=== PATIENT | female | born 1940 | race Caucasian/White ===

== ENCOUNTER → 2018-03-06 10:50 | Outpatient (CLI) | payer MEDICARE, BC, SELFPAY ==
--- NOTE | 2018-03-06 | DI.MG.S_ITS ---
BILATERAL DIGITAL SCREENING MAMMOGRAM 3D/2D WITH CAD: 03/06/2018 CLINICAL: Routine screening. Comparison is made to exams dated: 02/27/2017 mammogram, 01/23/2016 mammogram, and 01/21/2015 mammogram - [facility]. The tissue of both breasts is extremely dense, which lowers the sensitivity of mammography. Current study was also evaluated with a Computer Aided Detection (CAD) system. No significant masses, calcifications, or other findings are seen in either breast. There has been no significant interval change. IMPRESSION: NEGATIVE There is no mammographic evidence of malignancy. A 1 year screening mammogram is recommended. This exam was interpreted at Station ID: [id number]. NOTE: For mammograms, a report in lay terms will be sent to the patient. Approximately 15% of breast malignancies will not be visualized mammographically. In the management of a palpable breast mass, a negative mammogram must not discourage biopsy of a clinically suspicious lesion. Electronically Signed By: Kyler cervantes/cat:03/06/2018 20:11:13 letter sent: Normal Exam ACR BI-RADS Category 1: Negative [id number]
== END ==
PROVIDERS: Family Provider Family Medicine; PCP Family Medicine; Visit Provider Family Medicine
DX: Z12.31 Encounter for screening mammogram for malignant neoplasm of breast (principal)
CPT/HCPCS: 77063; 77067

== ENCOUNTER 2018-03-07 13:50 | Day surgery (SDC) | payer MEDICARE, BC, SELFPAY ==
--- NOTE | 2018-03-07 | PATH_ITS ---
[facility] Accession Number: [id number] . 01 Material submitted: . COLON POLYP BIOPSY AT 80CM . 02 Diagnosis: Colon Polyp Biopsy at 80 cm: Polypoid-shaped fragment of colon mucosa consistent with mucosal polypoid redundancy. Negative for evidence of neoplasm and/or hyperplasia on multiple serial and histologic sections. MRV/03/11/2018 . 02 Electronically signed: . Javid Alvarado MD, Pathologist NPI- [id number] . 01 Gross description: . COLON POLYP BIOPSY AT 80CM: Received in formalin is 1 fragment(s) of sargent, soft tissue measuring 0.5 x 0.3 x 0.1 cm submitted entirely in 1 cassette(s) /CKI /CKI . 02 Pathologist provided ICD-10: K63.5 . 02 CPT . 566364 Performed at: 01 [facility] [address], [place], [place] [id number] MD Kyler Pérez MD Phone: [phone] Performed at: 02 [facility] [address] [place], [place] [id number] MD Tanner Ulloa MD Phone: [phone]
[2018-03-07 14:30] VITALS: BP 133/72; PULSE 104; RESP 20; TEMP 36.1; O2SAT 98
[2018-03-07 14:47] VITALS: BMI 20.3
[2018-03-07] MEDS: SODIUM CHLORIDE 0.9% 1,000 ML 200 ML IV ×2 (14:50→16:32)
--- NOTE | 2018-03-07 15:10 | SUR.PREOP ---
Pt ready for Endo Suite at this time. head host/hostess data base has been completed, PIV in place and ns is at TKO. Consent has been signed, awaiting MD to sign consent and see Pt at the bedside.
--- NOTE | 2018-03-07 15:50 | P.HP_ITS ---
History of Present Illness Date Patient Seen: 03/07/18 Time Patient Seen: 15:48 Chief complaint: colonoscopy [id number] Narrative: Very pleasant 77-year-old female with a history of AFib but no longer symptomatic who has a history of colon polyps here for follow-up colonoscopy no signs and symptoms of rectal bleeding, melena, weight loss, fatigue, change in bowel habits. Patient History Family & Social History Family History: Reviewed 03/07/18 by Pramod Jade MD Social History: household members spouse Meds Home Medications Medication Instructions Recorded Confirmed Type levothyroxine [Levoxyl] 25 mcg PO QAM #0 09/11/17 03/07/18 History aspirin [Aspir-81] 81 mg PO DAILY 03/07/18 03/07/18 History atorvastatin 20 mg PO DAILY 03/07/18 03/07/18 History cholecalciferol (vitamin D3) 1 tab PO DAILY 03/07/18 03/07/18 History [Vitamin D3] coQ10 (ubiquinol) 100 mg PO DAILY 03/07/18 03/07/18 History docusate sodium 200 mg PO DAILY 03/07/18 03/07/18 History estradiol [Estrace] 1 g VAGINAL 3XW 03/07/18 03/07/18 History omega 7-bvh-tsq-fish oil [Fish Oil] 2 tab PO DAILY 03/07/18 03/07/18 History Allergies Allergy/AdvReac Type Severity Reaction Status Date / Time bacitracin Allergy Intermediate RASH Verified 03/06/18 14:19 [From NEOSPORIN ([id number])] neomycin Allergy Intermediate RASH Verified 03/06/18 14:19 [From NEOSPORIN ([id number])] polymyxin B Allergy Intermediate RASH Verified 03/06/18 14:19 [From NEOSPORIN ([id number])] rosuvastatin [From Crestor] AdvReac Intermediate Headache Verified 03/06/18 14: 18 Review of Systems Review of Systems All systems reviewed & are unremarkable except as noted in HPI and below Exam Vital Signs (past 8 hours): - 03/07/18 14:30 Temperature 97 F L Pulse Rate 104 H Respiratory Rate 20 Blood Pressure 133/72 H Pulse Oximetry 98 Oxygen Delivery Method Room Air Narrative Exam Narrative: Pleasant 77-year-old female in no acute distress speaking in full sentences No carotid bruits Pupils equal round reactive anicteric sclera Neck is symmetric Chest symmetric Lungs clear to auscultation bilaterally Heart regular rate and rhythm no real murmur or gallop or rub or click Abdomen soft nontender Extremities warm well perfused no cyanosis clubbing or edema Skin no obvious lesions Neuro alert and oriented x3 Psych a pleasant alert normal mood Assessment & Plan (1) Encounter for colonoscopy due to history of adenomatous colonic polyps: Current visit: Yes Status: Acute Plan: Assessment/Plan Narrative: I discussed the risks and benefits of the procedure of the colonoscopy including perforation missed lesion infection bleeding delayed perforation sedation rarely symptomatic complications leading to and she wishes to proceed with elective colonoscopy for history of colon polyps
--- NOTE | 2018-03-07 15:50 | PM.OP.ENDO ---
Operative Date/Time/Diagnoses Time of procedure: 15:51 Procedure & Clinicians Same procedure as scheduled: No (Internal hemorrhoids Grade 2. Polyp at 80cm, unable to reach cecum, ran out of colonoscope length. ) Indications: History of colon polyps Surgeon: Pramod Jade Procedure Notes SCOAP/Timeout: yes Procedure in detail: After informed consent was obtained including risks and benefits of missed lesion, perforation sedation and other the patient was taken to the endoscopy suite where she was given a total of 5 mg of Versed and 250 mcg of fentanyl. 43 min total sedation time and 10 min total withdrawal time. Digital rectal exam showed internal hemorrhoids and a well lubricated endoscope was placed into the anus and advanced to the right colon. Multiple positions were tried with the patient on her right side on her left side on her back with 2 nurses to press on the abdomen to try and decrease looping in the colon however we utilized the entire length of the colonoscope and with multiple attempts was still unable to intubate the cecum. There were no major polyps throughout the entire colon on withdrawal 1 diminutive polyp was seen at 80 cm and removed with cold forceps. There was no significant bleeding remainder of the colonoscopy was essentially normal with retroflexion showing internal hemorrhoids grade 2-3. Scope withdrawal time: 10 Sedation minutes: 43 Findings: internal hemorrhoids and polyp Specimen(s): other (polyp at 80 cm cold forceps) Complications: none Recommendations: Colonscopy in 3 years Plan for aftercare: Follow up in 3 yrs for repeat. Incomplete scope due to inability to get to cecum, very floppy colon, looping in colon, multiple positions of patient with 2 nurses to press on abdomen, ran out of scope length. Follow up: as needed Disposition: PACU
[2018-03-07] MEDS: fentaNYL 250 MCG/5 ML INJ IV (15:56)
[2018-03-07] MEDS: MIDAZOLAM 5 MG/5 ML VIAL IV (15:57)
--- NOTE | 2018-03-07 16:28 | SUR.OPER ---
unable to reach cecum
[2018-03-07 16:35] VITALS: BP 102/56; PULSE 70; RESP 12; O2SAT 97
[2018-03-07 16:40] VITALS: BP 96/56; PULSE 66; RESP 14; O2SAT 99
[2018-03-07 16:45] VITALS: BP 98/54; PULSE 64; RESP 18; TEMP 36.1; O2SAT 98
[2018-03-07 17:00] VITALS: BP 114/58; PULSE 60; RESP 16; O2SAT 99
--- NOTE | 2018-03-07 17:25 | SUR.PHASEII ---
Prior to discharge spent time in casual conversation with Dr Jade. That time is not included in Phase II time.
== END 2018-03-07 17:09 | disposition home or self-care (01) ==
PROVIDERS: Family Provider Family Medicine; PCP Family Medicine; Visit Provider Surgery
PROC: 0DJD8ZZ Inspection of Lower Intestinal Tract, Via Natural or Artificial Opening Endoscopic (ICD-10-PCS; CPT 45378; principal; 2018-03-07 15:00)
DX: Z86.010 Personal history of colon polyps (principal); K64.1 Second degree hemorrhoids; K63.5 Polyp of colon
CPT/HCPCS: 45380; 88305; 99152; 99153; J2250; J3010

== ENCOUNTER 2018-10-21 10:21 | Emergency (ER) | payer MEDICARE, BC, SELFPAY ==
[2018-10-21] VITALS (10 sets, daily range): BP systolic 118–160; BP diastolic 65–77; PULSE 14–114; RESP 11–19; TEMP 36.4; O2SAT 99–100
--- NOTE | 2018-10-21 10:29 | DI.RAD.S_ITS ---
PROCEDURE: XR CHEST 1V INDICATIONS: Chest pain TECHNIQUE: One view of the chest was acquired. COMPARISON: [facility], , CHEST 2 VIEW, 07/13/2017, 15:22. FINDINGS: Surgical changes and devices: None. Lungs and pleura: Lungs are clear. No pleural effusions or pneumothorax. Mediastinum: Mediastinal contours appear normal. Heart size is normal. Bones and chest wall: No suspicious bony lesions. Overlying soft tissues appear unremarkable. IMPRESSION: No acute cardiopulmonary pathology. Dictated by: Everton Morris M.D. on 10/21/2018 at 11:07 Approved by: Everton Morris M.D. on 10/21/2018 at 11:08
[2018-10-21 11:04] LABS: Add Manual Diff / Slide Review NO; Basophils Absolute Auto 0 /uL (0-100); Basophils Percent Auto 1.2 % (0-2); Eosinophils Absolute Auto 100 /uL (0-450); Eosinophils Percent Auto 1.9 % (2-4); Hemoglobin 13.8 g/dL (12.0-16.0); Lymphocytes Absolute Auto 1300 /uL (1100-4500); Lymphocytes Percent Auto 30.2 % (25-40); Mean Corpuscular HGB Conc 33.7 % (30-36); Mean Corpuscular Hemoglobin 30.5 PG (26-34); Mean Corpuscular Volume 90.7 fL (80-100); Monocytes Absolute Auto 400 /uL (0-900); Monocytes Percent Auto 9.6 % (3-14); Neutrophils Absolute Auto 2400 /uL (1500-7000); Neutrophils Percent Auto 57.1 % (50-75); Platelet Count 204 X10^3/uL (150-400); Red Blood Cell Count 4.52 X10^6/uL (4.0-5.2); Red Cell Distribution Width 13.4 % (11.6-14.8); White Blood Cell Count 4.2 X10^3/uL (4.5-11.0)
[2018-10-21 11:09] LABS: Prothrombin Time 11.1 SECONDS (10.1-12.7)
[2018-10-21 11:11] LABS: PTT Partial Thromboplastin Tim 33 SECONDS (26.4-36.2)
--- NOTE | 2018-10-21 11:16 | ED.CHESTPAIN ---
HPI - Chest Pain General Chief Complaint: Chest Pain Stated Complaint: CHEST PAIN Time Seen by Provider: 10/21/18 10:29 Source: patient Mode of arrival: ambulatory History of Present Illness HPI narrative: 78-year-old female here for evaluation of chest pain. She states that she woke up this morning with left-sided chest discomfort. Not worse with breathing or palpation or movement. She states that she occasionally wakes up with this pain and did not think much about it however she went for her normal 4 mi walk this morning and had to stop early because the symptoms worsened. She states that the symptoms improved but did not resolve when she stopped exerting herself. She states for the past couple days this has been happening to her. Denies any shortness of breath. does have a history of atrial fibrillation. 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 Related Data Home Medications Medication Instructions Recorded Confirmed aspirin [Aspir-81] 81 mg PO QPM 03/07/18 10/21/18 atorvastatin 20 mg PO QPM 03/07/18 10/21/18 cholecalciferol (vitamin D3) 1 tab PO DAILY 03/07/18 10/21/18 [Vitamin D3] coenzyme Q10 [CoQ-10] 100 mg PO DAILY 03/07/18 10/21/18 docusate sodium 100 mg PO BID 03/07/18 10/21/18 estradiol [Estrace] 1 g VAGINAL 3XW 03/07/18 10/21/18 omega 7-lpx-wkm-fish oil [Fish Oil] 2 - 3 cap PO DAILY 03/07/18 10/21/18 aspirin 325 mg PO .ONCE 10/21/18 10/21/18 levothyroxine 50 mcg PO DAILY 10/21/18 10/21/18 Allergies Allergy/AdvReac Type Severity Reaction Status Date / Time bacitracin Allergy Intermediate RASH Verified 10/21/18 10:37 [From NEOSPORIN ([id number])] neomycin Allergy Intermediate RASH Verified 10/21/18 10:37 [From NEOSPORIN ([id number])] polymyxin B Allergy Intermediate RASH Verified 10/21/18 10:37 [From NEOSPORIN ([id number])] rosuvastatin [From Crestor] AdvReac Intermediate Headache Verified 10/21/18 10:37 Review of Systems Constitutional Denies fever(s) and Denies headache(s) ENT Ears, Nose, Mouth, and Throat: Denies vertigo and Denies headache(s) Cardiovascular Reports chest pain, Denies diaphoresis, Denies rapid heart rate, Denies pedal edema, Denies palpitations, Reports dyspnea and Reports dyspnea on exertion Respiratory Reports dyspnea and Reports dyspnea on exertion Gastrointestinal Gastrointestinal: Denies abdominal pain, Denies nausea and Denies vomiting Integumentary/Breasts Denies lesions and Denies rash Neurologic Denies confusion, Denies vertigo and Denies headache(s) Psychiatric Denies confusion Endocrine Denies palpitations Hematologic/Lymphatic Denies easy bleeding and Denies easy bruising Allergic/Immunologic Denies urticaria [facility] Medical History Atrial fibrillation (Acute) High cholesterol (Acute) Hypothyroidism (Acute) Skin cancer (Acute) Social History household members: spouse Social History household members: spouse Exam Initial Vital Signs Initial Vital Signs: Vital Signs Temperature 97.6 F 10/21/18 10:31 Pulse Rate 89 10/21/18 10:31 Respiratory Rate 16 10/21/18 10:31 Blood Pressure 160/75 H 10/21/18 10:31 Pulse Oximetry 100 10/21/18 10:31 Const General: cooperative, comfortable, well developed, well groomed and No acute distress Orientation: alert, awake and oriented x3 HENMT Head: normal to inspection and normocephalic Resp Effort & Inspection: normal respiratory effort Auscultation: clear to auscultation bilaterally Cardio Rate: regular rate Rhythm: regular rhythm Pulses: radial pulses present Skin Lesions: no lesions Rashes: no rashes Neuro General: alert, awake and oriented x3 Extrem General: normal to inspection, capillary refill normal and No edema Psych Appearance: grossly normal and well kempt Course Orders Ordered: ED Orders 10/21/18 10:28 EKG-12 Lead Stat 10/21/18 10:29 XR chest 1V Stat 10/21/18 10:45 Complete Blood Count AUTO DIFF Stat Comprehensive Metabolic Panel Stat Lipase Stat Partial Thromboplastin Time Stat Prothrombin Time INR Stat Troponin I Stat 10/21/18 15:47 Partial Thromboplastin Time Stat 10/21/18 16:00 PTT [Partial Thromboplastin Time] Q6H 10/21/18 22:00 PTT [Partial Thromboplastin Time] Q6H 10/22/18 04:00 PTT [Partial Thromboplastin Time] Q6H 10/22/18 05:00 Hemoglobin and Hematocrit DAILY 10/22/18 10:00 PTT [Partial Thromboplastin Time] Q6H Heparin Sodium/Dextrose (Heparin Drip) 25,000 unit in 500 mls @ 13.608 mls/hr IV CONT ANGIE; Protocol Nitroglycerin (Nitrostat) 0.4 mg SL [id number] PRN PRN Reason: Chest Pain Discontinued Medications Aspirin (Aspirin Chew) 324 mg PO NOW ONE Stop: 10/21/18 11:21 Last Admin: 10/21/18 11:40 Dose: Not Given Heparin Sodium (Porcine) (Heparin) 4,000 unit IV NOW ONE Stop: 10/21/18 15:48 Vital Signs - 8 hr 10/21/18 10:31 10/21/18 11:00 10/21/18 11:30 Temperature 97.6 F Pulse Rate 89 114 H 67 Respiratory Rate 16 11 L 19 Blood Pressure 160/75 H Blood Pressure [Left Arm] 134/72 118/70 Pulse Oximetry 100 100 100 10/21/18 12:00 10/21/18 13:00 10/21/18 13:30 Temperature Pulse Rate 14 L 72 71 Respiratory Rate 15 14 15 Blood Pressure Blood Pressure [Left Arm] 133/72 140/77 124/66 Pulse Oximetry 100 100 100 10/21/18 14:28 10/21/18 15:23 Temperature Pulse Rate 73 73 Respiratory Rate 16 14 Blood Pressure Blood Pressure [Left Arm] 125/69 120/65 Pulse Oximetry 100 MDM - Chest Pain Lab Data Attestation: I reviewed the patient's lab results. Result diagrams: 10/21/18 10:45 10/21/18 10:45 Lab Results 10/21/18 10/21/18 10/21/18 Range/Units 10:45 10:45 10:45 WBC 4.2 L (4.5-11.0) X10^3/uL RBC 4.52 (4.0-5.2) X10^6/uL Hgb 13.8 (12.0-16.0) g/dL Hct 41.0 (36-46) % MCV 90.7 (80-100) fL MCH 30.5 (26-34) PG MCHC 33.7 (30-36) % RDW 13.4 (11.6-14.8) % Plt Count 204 (150-400) X10^3/uL Neut % (Auto) 57.1 (50-75) % Lymph % (Auto) 30.2 (25-40) % Citrus % (Auto) 9.6 (3-14) % Eos % (Auto) 1.9 L (2-4) % Baso % (Auto) 1.2 (0-2) % Neut # (Auto) 2400 (0003-3481) /uL Lymph # (Auto) 1300 (4611-4769) /uL Citrus # (Auto) 400 (0-900) /uL Eos # (Auto) 100 (0-450) /uL Baso # (Auto) 0 (0-100) /uL PT 11.1 (10.1-12.7) SECONDS INR 1.0 (0.9-1.3) APTT 33 (26.4-36.2) SECONDS Sodium 136 L (137-145) mmol/L Potassium 4.0 (3.4-5.1) mmol/L Chloride 104 (98-107) mmol/L Carbon Dioxide 24 (22-32) mmol/L BUN 14 (7-17) mg/dL Creatinine 0.70 (0.52-1.04) mg/dL Estimated GFR > 60.0 (>60) mL/min BUN/Creatinine Ratio 20.0 (6-22) Glucose 133 H (80-110) mg/dL Calcium 9.2 (8.4-10.2) mg/dL Total Bilirubin 0.4 (0.2-1.3) mg/dL AST 32 (14-36) IU/L ALT 31 (9-52) IU/L Alkaline Phosphatase 73 (38-126) U/L Troponin I < 0.012 (0.01-0.034) ng/mL Total Protein 7.1 (6.3-8.2) g/dL Albumin 4.3 (3.5-5.0) g/dL Globulin 2.8 (1.7-4.1) g/dL Albumin/Globulin Ratio 1.5 (1.0-2.8) Lipase 86 (23-300) U/L Imaging Data Chest x-ray: Radiologist's impression: [address] [address] XRay Report Signed Patient: Mignon Webster JMR#: [id number] : 1941Acct:[id number] Age/Sex: 78 / FDate of Service: 10/21/18 Loc: ED Accession Number: [id number] Procedure: XR chest 1V Ordering Provider: Gonzalez Akbar D.O. PROCEDURE: XR CHEST 1V INDICATIONS: Chest pain TECHNIQUE: One view of the chest was acquired. COMPARISON: [facility], , CHEST 2 VIEW, 07/13/2017, 15:22. FINDINGS: Surgical changes and devices: None. Lungs and pleura: Lungs are clear. No pleural effusions or pneumothorax. Mediastinum: Mediastinal contours appear normal. Heart size is normal. Bones and chest wall: No suspicious bony lesions. Overlying soft tissues appear unremarkable. IMPRESSION: No acute cardiopulmonary pathology. Dictated by: Everton Morris M.D. on 10/21/2018 at 11:07 Approved by: Everton Morris M.D. on 10/21/2018 at 11:08 ECG Data Attestation: I personally reviewed and interpreted this ECG as follows: Prior ECG tracings: not available for review Interpretation: Sinus rhythm Ventricular rate 88 Normal QRS Normal QTC Nonspecific ST T wave changes MDM Narrative Medical decision making narrative: Patient was having some discomfort upon arrival here to the emergency department however prior to her receiving any nitroglycerin her symptoms had resolved. She remained symptom free during the remainder of her stay. Her initial troponin was negative. She was given an aspirin. I was able to discuss the case with Dr. Ruiz at the [facility] who accepts the patient for transport. Patient was transported to the [facility] per their request. Patient is stable for transport. They have been informed of the transport and agree. Will start the patient on heparin per recommendation of Dr. Ruiz given her concerning story. Discharge Plan Departure Patient Disposition: [facility] Clinical Impression: Unstable angina Prescriptions: No Action levothyroxine 50 mcg tablet 50 mcg PO DAILY RF: 0 aspirin 325 mg Tablet 325 mg PO .ONCE RF: 0 atorvastatin 20 mg Tablet 20 mg PO QPM RF: 0 aspirin [Aspir-81] 81 mg Tablet,Delayed Release (Dr/Ec) 81 mg PO QPM RF: 0 cholecalciferol (vitamin D3) [Vitamin D3] 2,000 unit Capsule 1 tab PO DAILY RF: 0 omega 2-wqv-dyf-fish oil [Fish Oil] 1,000 mg (120 mg-180 mg) Capsule 2 - 3 cap PO DAILY RF: 0 coenzyme Q10 [CoQ-10] 100 mg Capsule 100 mg PO DAILY RF: 0 docusate sodium 100 mg Capsule 100 mg PO BID RF: 0 estradiol [Estrace] 0.01 % (0.1 mg/gram) Cream 1 g VAGINAL 3XW RF: 0 Referrals: Nico Kumar MD [Primary Care Provider] -
--- NOTE | 2018-10-21 11:19 | ED_ITS ---
HPI - Chest Pain General Chief Complaint: Chest Pain Stated Complaint: CHEST PAIN Time Seen by Provider: 10/21/18 10:29 Source: patient Mode of arrival: ambulatory History of Present Illness HPI narrative: 78-year-old female here for evaluation of chest pain. She states that she woke up this morning with left-sided chest discomfort. Not worse with breathing or palpation or movement. She states that she occasionally wakes up with this pain and did not think much about it however she went for her normal 4 mi walk this morning and had to stop early because the symptoms worsened. She states that the symptoms improved but did not resolve when she stopped exerting herself. She states for the past couple days this has been happening to her. Denies any shortness of breath. does have a history of atrial fibrillation. He has never had a heart attack before has not seen a cognos in 7 years. Related Data Home Medications Medication Instructions Recorded Confirmed aspirin [Aspir-81] 81 mg PO QPM 03/07/18 10/21/18 atorvastatin 20 mg PO QPM 03/07/18 10/21/18 cholecalciferol (vitamin D3) 1 tab PO DAILY 03/07/18 10/21/18 [Vitamin D3] coenzyme Q10 [CoQ-10] 100 mg PO DAILY 03/07/18 10/21/18 docusate sodium 100 mg PO BID 03/07/18 10/21/18 estradiol [Estrace] 1 g VAGINAL 3XW 03/07/18 10/21/18 omega 1-dna-oop-fish oil [Fish Oil] 2 - 3 cap PO DAILY 03/07/18 10/21/18 aspirin 325 mg PO .ONCE 10/21/18 10/21/18 levothyroxine 50 mcg PO DAILY 10/21/18 10/21/18 Allergies Allergy/AdvReac Type Severity Reaction Status Date / Time bacitracin Allergy Intermediate RASH Verified 10/21/18 10:37 [From NEOSPORIN ([id number])] neomycin Allergy Intermediate RASH Verified 10/21/18 10:37 [From NEOSPORIN ([id number])] polymyxin B Allergy Intermediate RASH Verified 10/21/18 10:37 [From NEOSPORIN ([id number])] rosuvastatin [From Crestor] AdvReac Intermediate Headache Verified 10/21/18 10:37 Review of Systems Constitutional Denies fever(s) and Denies headache(s) ENT Ears, Nose, Mouth, and Throat: Denies vertigo and Denies headache(s) Cardiovascular Reports chest pain, Denies diaphoresis, Denies rapid heart rate, Denies pedal edema, Denies palpitations, Reports dyspnea and Reports dyspnea on exertion Respiratory Reports dyspnea and Reports dyspnea on exertion Gastrointestinal Gastrointestinal: Denies abdominal pain, Denies nausea and Denies vomiting Integumentary/Breasts Denies lesions and Denies rash Neurologic Denies confusion, Denies vertigo and Denies headache(s) Psychiatric Denies confusion Endocrine Denies palpitations Hematologic/Lymphatic Denies easy bleeding and Denies easy bruising Allergic/Immunologic Denies urticaria [facility] Medical History Atrial fibrillation (Acute) High cholesterol (Acute) Hypothyroidism (Acute) Skin cancer (Acute) Social History household members: spouse Social History household members: spouse Exam Initial Vital Signs Initial Vital Signs: Vital Signs Temperature 97.6 F 10/21/18 10:31 Pulse Rate 89 10/21/18 10:31 Respiratory Rate 16 10/21/18 10:31 Blood Pressure 160/75 H 10/21/18 10:31 Pulse Oximetry 100 10/21/18 10:31 Const General: cooperative, comfortable, well developed, well groomed and No acute distress Orientation: alert, awake and oriented x3 HENMT Head: normal to inspection and normocephalic Resp Effort & Inspection: normal respiratory effort Auscultation: clear to auscultation bilaterally Cardio Rate: regular rate Rhythm: regular rhythm Pulses: radial pulses present Skin Lesions: no lesions Rashes: no rashes Neuro General: alert, awake and oriented x3 Extrem General: normal to inspection, capillary refill normal and No edema Psych Appearance: grossly normal and well kempt Course Orders Ordered: ED Orders 10/21/18 10:28 EKG-12 Lead Stat 10/21/18 10:29 XR chest 1V Stat 10/21/18 10:45 Complete Blood Count AUTO DIFF Stat Comprehensive Metabolic Panel Stat Lipase Stat Partial Thromboplastin Time Stat Prothrombin Time INR Stat Troponin I Stat 10/21/18 15:47 Partial Thromboplastin Time Stat 10/21/18 16:00 PTT [Partial Thromboplastin Time] Q6H 10/21/18 22:00 PTT [Partial Thromboplastin Time] Q6H 10/22/18 04:00 PTT [Partial Thromboplastin Time] Q6H 10/22/18 05:00 Hemoglobin and Hematocrit DAILY 10/22/18 10:00 PTT [Partial Thromboplastin Time] Q6H Heparin Sodium/Dextrose (Heparin Drip) 25,000 unit in 500 mls @ 13.608 mls/hr IV CONT ANGIE; Protocol Nitroglycerin (Nitrostat) 0.4 mg SL [id number] PRN PRN Reason: Chest Pain Discontinued Medications Aspirin (Aspirin Chew) 324 mg PO NOW ONE Stop: 10/21/18 11:21 Last Admin: 10/21/18 11:40 Dose: Not Given Heparin Sodium (Porcine) (Heparin) 4,000 unit IV NOW ONE Stop: 10/21/18 15:48 Vital Signs - 8 hr 10/21/18 10:31 10/21/18 11:00 10/21/18 11:30 Temperature 97.6 F Pulse Rate 89 114 H 67 Respiratory Rate 16 11 L 19 Blood Pressure 160/75 H Blood Pressure [Left Arm] 134/72 118/70 Pulse Oximetry 100 100 100 10/21/18 12:00 10/21/18 13:00 10/21/18 13:30 Temperature Pulse Rate 14 L 72 71 Respiratory Rate 15 14 15 Blood Pressure Blood Pressure [Left Arm] 133/72 140/77 124/66 Pulse Oximetry 100 100 100 10/21/18 14:28 10/21/18 15:23 Temperature Pulse Rate 73 73 Respiratory Rate 16 14 Blood Pressure Blood Pressure [Left Arm] 125/69 120/65 Pulse Oximetry 100 MDM - Chest Pain Lab Data Attestation: I reviewed the patient's lab results. Result diagrams: 10/21/18 10:45 10/21/18 10:45 Lab Results 10/21/18 10/21/18 10/21/18 Range/Units 10:45 10:45 10:45 WBC 4.2 L (4.5-11.0) X10^3/uL RBC 4.52 (4.0-5.2) X10^6/uL Hgb 13.8 (12.0-16.0) g/dL Hct 41.0 (36-46) % MCV 90.7 (80-100) fL MCH 30.5 (26-34) PG MCHC 33.7 (30-36) % RDW 13.4 (11.6-14.8) % Plt Count 204 (150-400) X10^3/uL Neut % (Auto) 57.1 (50-75) % Lymph % (Auto) 30.2 (25-40) % [place] % (Auto) 9.6 (3-14) % Eos % (Auto) 1.9 L (2-4) % Baso % (Auto) 1.2 (0-2) % Neut # (Auto) 2400 (7606-7582) /uL Lymph # (Auto) 1300 (1477-7560) /uL [place] # (Auto) 400 (0-900) /uL Eos # (Auto) 100 (0-450) /uL Baso # (Auto) 0 (0-100) /uL PT 11.1 (10.1-12.7) SECONDS INR 1.0 (0.9-1.3) APTT 33 (26.4-36.2) SECONDS Sodium 136 L (137-145) mmol/L Potassium 4.0 (3.4-5.1) mmol/L Chloride 104 (98-107) mmol/L Carbon Dioxide 24 (22-32) mmol/L BUN 14 (7-17) mg/dL Creatinine 0.70 (0.52-1.04) mg/dL Estimated GFR > 60.0 (>60) mL/min BUN/Creatinine Ratio 20.0 (6-22) Glucose 133 H (80-110) mg/dL Calcium 9.2 (8.4-10.2) mg/dL Total Bilirubin 0.4 (0.2-1.3) mg/dL AST 32 (14-36) IU/L ALT 31 (9-52) IU/L Alkaline Phosphatase 73 (38-126) U/L Troponin I < 0.012 (0.01-0.034) ng/mL Total Protein 7.1 (6.3-8.2) g/dL Albumin 4.3 (3.5-5.0) g/dL Globulin 2.8 (1.7-4.1) g/dL Albumin/Globulin Ratio 1.5 (1.0-2.8) Lipase 86 (23-300) U/L Imaging Data Chest x-ray: Radiologist's impression: [address] [address] XRay Report Signed Patient: Mignon Webster JMR#: [id number] : 1941Acct:[id number] Age/Sex: 78 / FDate of Service: 10/21/18 Loc: ED Accession Number: [id number] Procedure: XR chest 1V Ordering Provider: Gonzalez Akbar D.O. PROCEDURE: XR CHEST 1V INDICATIONS: Chest pain TECHNIQUE: One view of the chest was acquired. COMPARISON: , , CHEST 2 VIEW, 07/13/2017, 15:22. FINDINGS: Surgical changes and devices: None. Lungs and pleura: Lungs are clear. No pleural effusions or pneumothorax. Mediastinum: Mediastinal contours appear normal. Heart size is normal. Bones and chest wall: No suspicious bony lesions. Overlying soft tissues appear unremarkable. IMPRESSION: No acute cardiopulmonary pathology. Dictated by: Everton Morris M.D. on 10/21/2018 at 11:07 Approved by: Everton Morris M.D. on 10/21/2018 at 11:08 ECG Data Attestation: I personally reviewed and interpreted this ECG as follows: Prior ECG tracings: not available for review Interpretation: Sinus rhythm Ventricular rate 88 Normal QRS Normal QTC Nonspecific ST T wave changes MDM Narrative Medical decision making narrative: Patient was having some discomfort upon ar rival here to the emergency department however prior to her receiving any nitroglycerin her symptoms had resolved. She remained symptom free during the remainder of her stay. Her initial troponin was negative. She was given an aspirin. I was able to discuss the case with Dr. Ruiz at the [facility] who accepts the patient for transport. Patient was transported to the [facility] per their request. Patient is stable for transport. They have been informed of the transport and agree. Will start the patient on heparin per recommendation of Dr. Ruiz given her concerning story. Discharge Plan Departure Patient Disposition: [facility] Clinical Impression: Unstable angina Prescriptions: No Action levothyroxine 50 mcg tablet 50 mcg PO DAILY RF: 0 aspirin 325 mg Tablet 325 mg PO .ONCE RF: 0 atorvastatin 20 mg Tablet 20 mg PO QPM RF: 0 aspirin [Aspir-81] 81 mg Tablet,Delayed Release (Dr/Ec) 81 mg PO QPM RF: 0 cholecalciferol (vitamin D3) [Vitamin D3] 2,000 unit Capsule 1 tab PO DAILY RF: 0 omega 3-yya-yev-fish oil [Fish Oil] 1,000 mg (120 mg-180 mg) Capsule 2 - 3 cap PO DAILY RF: 0 coenzyme Q10 [CoQ-10] 100 mg Capsule 100 mg PO DAILY RF: 0 docusate sodium 100 mg Capsule 100 mg PO BID RF: 0 estradiol [Estrace] 0.01 % (0.1 mg/gram) Cream 1 g VAGINAL 3XW RF: 0 Referrals: Nico Kumar MD [Primary Care Provider] -
[2018-10-21 11:36] LABS: Alanine Aminotransferase 31 IU/L (9-52); Albumin 4.3 g/dL (3.5-5.0); Albumin Globulin Ratio 1.5 (1.0-2.8); Alkaline Phosphatase 73 U/L (38-126); Aspartate Aminotransferase 32 IU/L (14-36); Bilirubin Total 0.4 mg/dL (0.2-1.3); Blood Urea Nitrogen 14 mg/dL (7-17); Calcium 9.2 mg/dL (8.4-10.2); Carbon Dioxide 24 mmol/L (22-32); Chloride 104 mmol/L (98-107); Estimated Glomerular Filt Rate > 60.0 mL/min (>60); Globulin 2.8 g/dL (1.7-4.1); Glucose 133 mg/dL (80-110); HEMOLYSIS < 15 (0-50); Lipase 86 U/L (23-300); Sodium 136 mmol/L (137-145); Total Protein 7.1 g/dL (6.3-8.2)
[2018-10-21 11:48] LABS: Troponin I < 0.012 ng/mL (0.01-0.034)
[2018-10-21] MEDS: HEPARIN 5,000 UNIT/ML VIAL 4000 UNIT IV (16:22)
[2018-10-21] MEDS: HEPARIN DRIP 25,000 UNIT/500 ML IV.SOLN 13.608 UNIT IV (16:23)
[2018-10-21 16:26] LABS: PTT Partial Thromboplastin Tim 33 SECONDS (26.4-36.2)
--- NOTE | 2018-10-21 16:33 | PC.NURSE ---
Heparin bolus cosigned by Arvind PETERSON, heparin drip cosigned by Gillian PETERSON.
--- NOTE | 2018-11-06 09:41 | PC.NURSE ---
Heparin Drip 25,000 units/500mL was started at on 10/21/18 at 1623 at 13.608ml/hr and stopped on 10/21/18 upon transfer at 1730. Patient received approximately 26ml and drip was continued in transport by [facility] RN's.
== END 2018-10-21 17:30 | disposition short-term general hospital (02) ==
PROVIDERS: Emergency Provider Emergency Medicine; Family Provider Family Medicine; PCP Family Medicine
DX: I20.0 Unstable angina (principal)
CPT/HCPCS: 36415; 36591; 71045; 80053; 83690; 84484; 85025; 85610; 85730; 93005; 93010; 96365; 96376; 99285; J1644

== ENCOUNTER → 2019-03-10 10:38 | Outpatient (CLI) | payer MEDICARE, BC, SELFPAY ==
--- NOTE | 2019-03-10 | DI.MG.S_ITS ---
BILATERAL DIGITAL SCREENING MAMMOGRAM 3D/2D WITH CAD: 03/10/2019 CLINICAL: Routine screening. Comparison is made to exams dated: 03/06/2018 mammogram, 02/27/2017 mammogram, and 01/23/2016 mammogram - [facility]. The tissue of both breasts is extremely dense, which lowers the sensitivity of mammography. Current study was also evaluated with a Computer Aided Detection (CAD) system. No significant masses, calcifications, or other findings are seen in either breast. There has been no significant interval change. IMPRESSION: NEGATIVE There is no mammographic evidence of malignancy. A 1 year screening mammogram is recommended. This exam was interpreted at Station ID: [id number]. NOTE: For mammograms, a report in lay terms will be sent to the patient. Approximately 15% of breast malignancies will not be visualized mammographically. In the management of a palpable breast mass, a negative mammogram must not discourage biopsy of a clinically suspicious lesion. Electronically Signed By: Kyler cervantes/cat:03/10/2019 16:32:02 letter sent: Normal Exam ACR BI-RADS Category 1: Negative [id number]
== END ==
PROVIDERS: Family Provider Family Medicine; PCP Family Medicine; Visit Provider Family Medicine
DX: Z12.31 Encounter for screening mammogram for malignant neoplasm of breast (principal)
CPT/HCPCS: 77063; 77067

== ENCOUNTER → 2019-12-28 12:42 | Outpatient (CLI) | payer MEDICARE, BC, SELFPAY ==
--- NOTE | 2019-12-28 | DI.MG.S_ITS ---
BILATERAL DIGITAL DIAGNOSTIC MAMMOGRAM 3D/2D: 12/28/2019 CLINICAL: Left breast tenderness which patient currently says has completely resolved. No focal masses. No palpable abnormalities. Comparison is made to exams dated: 03/10/2019 mammogram, 03/06/2018 mammogram, and 02/27/2017 mammogram - [facility]. The tissue of both breasts is extremely dense, which lowers the sensitivity of mammography. No significant masses, calcifications, or other findings are seen in either breast. IMPRESSION: There is no abnormality seen in the left breast to correspond with the area of clinical concern and pain which has resolved prior to today's visit, however, recommend clinical follow up for recurrent or worsening symptoms or development of any clinically suspicious findings. There is no mammographic evidence of malignancy. A 1 year screening mammogram is recommended. Findings and recommendations were relayed to the patient during today's visit. This exam was interpreted at Station ID: [id number]. NOTE: For mammograms, a report in lay terms will be sent to the patient. Approximately 15% of breast malignancies will not be visualized mammographically. In the management of a palpable breast mass, a negative mammogram must not discourage biopsy of a clinically suspicious lesion. Electronically Signed By: Dhruv Singh M.D. aty/:12/28/2019 13:30:20 letter sent: Normal Exam ACR BI-RADS Category 2: Benign Finding(s) 3342F
== END ==
PROVIDERS: Family Provider Family Medicine; PCP Family Medicine; Referring Provider Family Medicine; Visit Provider Family Medicine
DX: R92.2 Inconclusive mammogram (principal); N64.4 Mastodynia; N63.20 Unspecified lump in the left breast, unspecified quadrant
CPT/HCPCS: 77066; G0279

== ENCOUNTER → 2021-01-03 10:18 | Outpatient (CLI) | payer MEDICARE, BC, SELFPAY ==
--- NOTE | 2021-01-03 | DI.MG.S_ITS ---
BILATERAL DIGITAL SCREENING MAMMOGRAM 3D/2D WITH CAD: 01/03/2021 CLINICAL: Routine screening. Comparison is made to exams dated: 12/28/2019 mammogram, 03/10/2019 mammogram, 03/06/2018 mammogram, and 02/27/2017 mammogram - [facility]. The tissue of both breasts is extremely dense, which lowers the sensitivity of mammography. Current study was also evaluated with a Computer Aided Detection (CAD) system. No significant masses, calcifications, or other findings are seen in either breast. There has been no significant interval change. IMPRESSION: NEGATIVE There is no mammographic evidence of malignancy. A 1 year screening mammogram is recommended. This exam was interpreted at Station ID: [id number]. NOTE: For mammograms, a report in lay terms will be sent to the patient. Approximately 15% of breast malignancies will not be visualized mammographically. In the management of a palpable breast mass, a negative mammogram must not discourage biopsy of a clinically suspicious lesion. Electronically Signed By: Miguel leija/cat:01/03/2021 10:51:22 letter sent: Normal Exam ACR BI-RADS Category 1: Negative 3341F
== END ==
PROVIDERS: Family Provider Family Medicine; PCP Family Medicine; Referring Provider Family Medicine; Visit Provider Family Medicine
DX: Z12.31 Encounter for screening mammogram for malignant neoplasm of breast (principal)
CPT/HCPCS: 77063; 77067

== ENCOUNTER → 2021-06-28 09:11 | Outpatient (CLI) | payer MEDICARE, BC, SELFPAY ==
[2021-06-28 11:11] LABS: COVID19 -Nasal RAPID Negative (Negative)
== END ==
PROVIDERS: Family Provider Family Medicine; PCP Family Medicine; Visit Provider Physician Assistant
DX: Z20.822 Contact with and (suspected) exposure to COVID-19 (principal)
CPT/HCPCS: 87635; C9803

== ENCOUNTER 2021-06-29 11:32 | Day surgery (SDC) | payer MEDICARE, BC, SELFPAY ==
[2021-06-27 11:13] VITALS: BMI 20.6
[2021-06-29 12:07] VITALS: BP 134/67; PULSE 75; RESP 18; TEMP 36.6; O2SAT 100; BMI 20.6
[2021-06-29] MEDS: LACTATED RINGERS 1,000 ML 42 ML IV (12:18)
[2021-06-29] MEDS: ACETAMINOPHEN 325 MG TABLET 650 MG PO (12:59)
--- NOTE | 2021-06-29 13:04 | PM.PREOP ---
Pre-operative Note COVID-19 COVID-19 status: Negative Result date/Date tested (Pos, Neg/Pending): 06/28/21 Interval Note History & Physical reviewed/Exam performed by Physician: Yes Changes to H&P: No
[2021-06-29] MEDS: CEFAZOLIN 2 GM/20 ML SYRINGE IV (13:05)
--- NOTE | 2021-06-29 13:05 | PM.OP.1 ---
Operative Date/Time/Diagnoses Date of procedure: 06/29/21 Time of procedure: 13:05 Pre-op diagnosis: Left great toe mass, suspect granuloma, with possible recurrent ingrown toenail. Post-op diagnosis: other (Left great toe recurrent matrix growth with subcutaneous degenerating nail tissue mass) Procedure & Clinicians Procedure: Left great toe excision soft tissue mass and surgical matrixectomy Same procedure as scheduled: Yes Indications: 80-year-old female with concern of painful bump on the great toe near the proximal nail where she has previously had an ingrown toenail. Conservative measures have failed to alleviate her pain and the prominence continues. Surgical intervention is desired. We spoke of the risks potential complications as well as expected outcomes. Consent was signed, no contraindication to the procedure at this time. Surgeon: Kim Mullen Click Yes if Unassisted: Yes Anesthesia Type: Sedation and Local Operative Notes Closure Type: primary Specimen(s): none sent Estimated Blood Loss (mL): 0 Procedure in detail: Patient was brought to the operating room and placed on the operating table in the supine position. After mild IV sedation, local anesthesia using the recorded injectables was obtained to the great toe. The foot was prepped and draped in the usual aseptic manner. After a check of anesthesia incision was made on the dorsal medial great toe over the enlarged nodule just proximal to the proximal medial nail fold of the hallux. The incision was deepened to subcutaneous tissues being careful to identify and retract all vital neural and vascular structures. All bleeders were cauterized and ligated as necessary. Immediately in the subcutaneous tissues was exuding a soft collection slightly gritty discharge, nonpurulent, non malodorous. Within the discharge there were 2 portions of nail that had evidently grown and broken off and the rest was degenerative nail tissue. At the very base of this was a small thin white cap consistent with the location with which this was growing. The cap was able to be easily removed and then the area was inspected for any remaining matrix tissue. This was more medially than edge of the remaining nail so my suspicion is that this was a small spicule. I did not see a ne tissue to be able to see a feather type base of the tissue of the matrix, but I did see an overlying thin piece of tissue that did appear to look consistent with some remaining matrix tissue. This was sharply excised and the area irrigated with normal saline. Curette and cautery were used in this area as well to verify no further nail matrix. The nail itself was not trimmed during this time. The area was irrigated with normal saline once again, and no further matrix tissue was noted. Closure to the skin used nylon suture. He was dressed with sterile lightly compressive dressing and placed in a stockinette and transferred to the PACU with vital signs stable and vascular status intact the foot. Post-operative Condition: stable Disposition: PACU Plan for aftercare: Following a period of postoperative monitoring, the patient will be discharged to home on written and oral postoperative instructions including keeping the dressing dry and intact. Avoiding significant weight-bearing to the foot, elevating the foot when seated at home. DVT prevention techniques were also reviewed. She has a sandal she is going to be using for postoperative care and I will see her back in a few days for a recheck.
[2021-06-29] MEDS: LIDOCAINE 2% INJ MDV 20 ML INJ (13:27)
[2021-06-29] MEDS: BUPIVACAINE 0.5% (PF) VIAL 30 ML INJ (13:28)
--- NOTE | 2021-06-29 13:30 | SUR.OPER ---
Supine on padded OR bed, head on pillow, arms secured on padded arm boards at <90 degrees abduction, legs uncrossed, safety belt at thigh, tape over blanket over lower legs.
[2021-06-29 13:48] VITALS: BP 105/64; PULSE 55; RESP 12; TEMP 36.3; O2SAT 99
[2021-06-29 14:05] VITALS: BP 116/78; PULSE 59; RESP 16; TEMP 36.6; O2SAT 100
== END 2021-06-29 14:32 | disposition home or self-care (01) ==
PROVIDERS: Family Provider Family Medicine; PCP Family Medicine; Referring Provider Podiatrist; Visit Provider Podiatrist
PROC: (CPT 11750; principal; 2021-06-29 13:15)
PROC: 0HTRXZZ Resection of Toe Nail, External Approach (ICD-10-PCS; CPT 11750; 2021-06-29 13:15)
DX: L60.0 Ingrowing nail (principal); L92.8 Other granulomatous disorders of the skin and subcutaneous tissue; J45.909 Unspecified asthma, uncomplicated; I25.10 Atherosclerotic heart disease of native coronary artery without angina pectoris
CPT/HCPCS: 11750; J0690; J2704

== ENCOUNTER 2021-08-31 09:19 | Emergency (ER) | payer MEDICARE, BC, SELFPAY ==
[2021-08-31] VITALS (11 sets, daily range): BP systolic 132–138; BP diastolic 58–82; PULSE 66–103; RESP 15–23; TEMP 36.3; O2SAT 97–100
--- NOTE | 2021-08-31 09:23 | DI.RAD.S_ITS ---
PROCEDURE: XR CHEST 1V INDICATIONS: chest pain TECHNIQUE: One view of the chest was acquired. COMPARISON: [facility], CR, XR CHEST 1V, 10/21/2018, 10:48. FINDINGS: Surgical changes and devices: None. Lungs and pleura: Lungs are clear. No pleural effusions or pneumothorax. Mediastinum: Mediastinal contours appear normal. Heart size is normal. Bones and chest wall: No suspicious bony lesions. Overlying soft tissues appear unremarkable. IMPRESSION: No acute cardiopulmonary abnormality. Dictated by: Shine Bauer M.D. on 08/31/2021 at 10:07 Approved by: Shine Bauer M.D. on 08/31/2021 at 10:08
[2021-08-31 09:36] LABS: Add Manual Diff / Slide Review NO; Basophils Absolute Auto 100 /uL (0-100); Basophils Percent Auto 0.9 % (0-2); Eosinophils Absolute Auto 100 /uL (0-450); Eosinophils Percent Auto 1.6 % (2-4); Hematocrit 41.3 % (36-46); Hemoglobin 13.9 g/dL (12.0-16.0); Lymphocytes Absolute Auto 2200 /uL (1100-4500); Lymphocytes Percent Auto 37.1 % (25-40); Mean Corpuscular HGB Conc 33.6 % (30-36); Mean Corpuscular Hemoglobin 30.4 PG (26-34); Mean Corpuscular Volume 90.4 fL (80-100); Monocytes Absolute Auto 600 /uL (0-900); Monocytes Percent Auto 10.3 % (3-14); Neutrophils Absolute Auto 3000 /uL (1500-7000); Neutrophils Percent Auto 50.1 % (50-75); Platelet Count 210 X10^3/uL (150-400); Red Blood Cell Count 4.57 X10^6/uL (4.0-5.2); Red Cell Distribution Width 13.1 % (11.6-14.8); White Blood Cell Count 5.9 X10^3/uL (4.5-11.0)
--- NOTE | 2021-08-31 09:48 | ED.CHESTPAIN ---
HPI - Chest Pain General Chief Complaint: Chest Pain Stated Complaint: Thinks heart attack Time Seen by Provider: 08/31/21 09:28 Source: patient Mode of arrival: Wheelchair Limitations: no limitations Limitations: no limitations History of Present Illness HPI narrative: The patient arrives in the ER after about 20 minutes of palpitations this morning. She felt a bit weak with dyspnea when this was occurring. She had chest tightness. She has a history of paroxysmal AFib. She has experienced several recent short burst of AFib. That this morning seemed to be more severe than what she has recently experienced. Her heart rate was up to 150, she was at rest at the time. Her heart rate is now normalized. Symptoms have improved. She denies recent illness. She has no headache, sore throat or fever. She denies orthopnea or edema. She takes baby aspirin. She also takes Synthroid, her medications have recently been changed. Related Data Home Medications Medication Instructions Recorded Confirmed aspirin 81 mg tablet,delayed 81 mg PO QPM 03/07/18 06/29/21 release (Aspir-) atorvastatin 20 mg tablet 20 mg PO QPM 03/07/18 06/29/21 cholecalciferol (vitamin D3) 50 1 tab PO DAILY 03/07/18 06/29/21 mcg (2,000 unit) capsule (Vitamin D3) coenzyme Q10 100 mg capsule 100 mg PO DAILY 03/07/18 06/29/21 (CoQ-10) docusate sodium 100 mg capsule 100 mg PO BID 03/07/18 06/29/21 estradiol (Estrace) 1 g VAGINAL 3XW 03/07/18 06/29/21 omega 9-bju-jii-fish oil 1,000 mg 2 - 3 cap PO DAILY 03/07/18 06/29/21 (120 mg-180 mg) capsule (Fish Oil) levothyroxine 50 mcg tablet 50 mcg PO DAILY 10/21/18 06/29/21 Allergies Allergy/AdvReac Type Severity Reaction Status Date / Time bacitracin Allergy Intermediate RASH Verified 08/31/21 09:31 [From NEOSPORIN ([id number])] neomycin Allergy Intermediate RASH Verified 08/31/21 09:31 [From NEOSPORIN ([id number])] polymyxin B Allergy Intermediate RASH Verified 08/31/21 09:31 [From NEOSPORIN ([id number])] rosuvastatin [From Crestor] AdvReac Intermediate Headache Verified 08/31/21 09:31 Review of Systems Constitutional Constitutional: Denies body ache(s), Denies chills, Denies fatigue and Denies fever(s) Eyes Eyes: Denies change in vision ENT Ears, Nose, Mouth, and Throat: Denies dizziness, Denies sinus pressure and Denies sore throat Cardiovascular Cardiovascular: Reports chest pain, Denies syncope, Denies pedal edema, Reports palpitations and Reports dyspnea Respiratory Respiratory: Denies cough and Reports dyspnea Gastrointestinal Gastrointestinal: Denies abdominal pain, Denies bloating and Denies nausea Musculoskeletal Comments: No back pain. No extremity pain. Integumentary/Breasts Skin/Breast: Denies lesions and Denies rash Neurologic Neurologic: Denies confusion, Denies dizziness and Denies syncope Psychiatric Psychiatric: Denies confusion Endocrine Endocrine: Denies fatigue and Reports palpitations Hematologic/Lymphatic On Anticoagulants: No Patient History Medical History Atrial fibrillation High cholesterol Hypothyroidism Mass of toe (06/2021) Skin cancer Social History household members: spouse Smoking Status: Never smoker alcohol intake: current Smoking Status: Never smoker alcohol intake frequency: holidays/special occasions only Substance Use Type: does not use Exam Initial Vital Signs Initial Vital Signs: Vital Signs Pulse Rate 103 H 08/31/21 09:24 Pulse Oximetry 98 08/31/21 09:24 Const General: cooperative, healthy appearing and comfortable [facility] Head: normal to inspection, normocephalic and atraumatic Throat: posterior oropharynx normal Eyes General: appearance normal, both eyes and all related structures Neck Neck: No JVD Chest Chest: normal inspection of the chest Resp Auscultation: clear to auscultation bilaterally Cardio Rate: regular rate Rhythm: regular rhythm Heart Sounds: S1 normal, S2 normal, no click, no gallops and no murmurs GI Palpation: soft and No tender Auscultation: normal bowel sounds Back/Spine/Pelvis Back: normal to inspection and No CVA tenderness Skin General: no rashes or lesions noted Neuro General: patient alert, patient awake, patient oriented x3 and no focal motor deficits Extrem General: normal to inspection, no pedal edema and no calf tenderness Psych Mental Status: mental status grossly normal Course Course Course Narrative: The patient has been asymptomatic since arrival. Monitor shows normal sinus rhythm, she has no ectopy and no arrhythmia. Cardiac evaluation is normal. Thyroid tests are normal. Records indicate she has a history of AFib. She is under the care of a washroom operator. She takes aspirin. I have asked her to follow up with her washroom operator to discuss anticoagulation. She needs to see her washroom operator in clinical follow-up also. She can follow-up with a PCM regarding her thyroid studies. Orders Ordered: ED Orders 08/31/21 09:23 XR chest 1V Stat EKG-12 Lead Stat 08/31/21 09:30 Complete Blood Count AUTO DIFF Stat Comprehensive Metabolic Panel Stat Free T4, Direct Thyroxine Stat Lipase Stat Magnesium Stat TSH [Thyroid Stimulating Hormone] Stat Troponin & CK Cardiac Panel Stat Vital Signs Vital signs: Vital Signs - 8 hr 08/31/21 09:24 08/31/21 09:25 08/31/21 09:26 Temperature 97.4 F L Pulse Rate 103 H 100 H 100 H Respiratory Rate 15 16 Blood Pressure 138/82 138/82 Pulse Oximetry 98 100 100 08/31/21 09:30 08/31/21 10:00 08/31/21 10:30 Temperature Pulse Rate 85 77 68 Respiratory Rate 18 17 15 Blood Pressure Pulse Oximetry 100 99 98 08/31/21 11:00 08/31/21 11:30 08/31/21 11:50 Temperature Pulse Rate 66 72 75 Respiratory Rate 16 23 20 Blood Pressure 132/66 Pulse Oximetry 97 98 99 MDM - Chest Pain Lab Data Result diagrams: 08/31/21 09:30 08/31/21 09:30 Labs: Lab Results 08/31/21 08/31/21 08/31/21 Range/Units 09:30 09:30 09:30 WBC 5.9 (4.5-11.0) X10^3/uL RBC 4.57 (4.0-5.2) X10^6/uL Hgb 13.9 (12.0-16.0) g/dL Hct 41.3 (36-46) % MCV 90.4 (80-100) fL MCH 30.4 (26-34) PG MCHC 33.6 (30-36) % RDW 13.1 (11.6-14.8) % Plt Count 210 (150-400) X10^3/uL Neut % (Auto) 50.1 (50-75) % Lymph % (Auto) 37.1 (25-40) % [place] % (Auto) 10.3 (3-14) % Eos % (Auto) 1.6 L (2-4) % Baso % (Auto) 0.9 (0-2) % Neut # (Auto) 3000 (9261-1066) /uL Lymph # (Auto) 2200 (2302-0292) /uL [place] # (Auto) 600 (0-900) /uL Eos # (Auto) 100 (0-450) /uL Baso # (Auto) 100 (0-100) /uL Sodium 136 L (137-145) mmol/L Potassium 3.8 (3.4-5.1) mmol/L Chloride 104 (98-107) mmol/L Carbon Dioxide 25 (22-32) mmol/L BUN 16 (7-17) mg/dL Creatinine 0.72 (0.52-1.04) mg/dL Estimated GFR > 60.0 (>60) mL/min BUN/Creatinine Ratio 22.2 H (6-22) Glucose 118 H (80-110) mg/dL Calcium 9.1 (8.4-10.2) mg/dL Magnesium 2.1 (1.6-2.3) mg/dL Total Bilirubin 0.5 (0.2-1.3) mg/dL AST 44 H (14-36) IU/L ALT 29 (<35) IU/L Alkaline Phosphatase 72 (38-126) U/L Total Creatine Kinase 106 (30-135) U/L CK-MB (CK-2) 3.11 H (<2.37) ng/mL CK-MB (CK-2) Rel Index 2.9 (1.5-5.0) % Troponin I < 0.012 (0.01-0.034) ng/mL Total Protein 7.9 (6.3-8.2) g/dL Albumin 4.6 (3.5-5.0) g/dL Globulin 3.3 (1.7-4.1) g/dL Albumin/Globulin Ratio 1.4 (1.0-2.8) Lipase 106 (23-300) U/L TSH 5.19 H (0.47-4.68) uIU/mL Free T4 1.07 (0.78-2.19) ng/dL Imaging Data Chest x-ray: Radiologist's Impression: No acute cardiopulmonary process. ECG Data Attestation: I personally reviewed and interpreted this ECG as follows: (Normal sinus rhythm rate 98 beats per minute. Normal intervals. No ectopy. No acute ST T wave changes. Normal study.) Discharge Plan Departure Patient Disposition: Home Clinical Impression: Palpitations Instructions: DI for Arrhythmias Activity Restrictions/Additional Instructions: Your cardiac evaluation is normal. Your thyroid test levels are appropriate. You have been a normal sinus rhythm since arrival. Atrial fib is assumed, but we did not actually document an arrhythmia. Continue aspirin. Contact her washroom operator, regarding follow-up. Ask your washroom operator about anticoagulation medications. Return here if you have return of significant symptoms. Prescriptions: No Action levothyroxine 50 mcg tablet 50 mcg PO DAILY 0RF atorvastatin 20 mg Tablet 20 mg PO QPM 0RF aspirin [Aspir-81] 81 mg Tablet,Delayed Release (Dr/Ec) 81 mg PO QPM 0RF cholecalciferol (vitamin D3) [Vitamin D3] 2,000 unit Capsule 1 tab PO DAILY 0RF omega 9-sso-qfb-fish oil [Fish Oil] 1,000 mg (120 mg-180 mg) Capsule 2 - 3 cap PO DAILY 0RF coenzyme Q10 [CoQ-10] 100 mg Capsule 100 mg PO DAILY 0RF docusate sodium 100 mg Capsule 100 mg PO BID 0RF estradiol [Estrace] 0.01 % (0.1 mg/gram) Cream 1 g VAGINAL 3XW 0RF Referrals: Nico Kumar MD [Primary Care Provider] -
[2021-08-31 09:49] LABS: Alanine Aminotransferase 29 IU/L (<35); Albumin 4.6 g/dL (3.5-5.0); Albumin Globulin Ratio 1.4 (1.0-2.8); Alkaline Phosphatase 72 U/L (38-126); Aspartate Aminotransferase 44 IU/L (14-36); BUN Creatinine Ratio 22.2 (6-22); Bilirubin Total 0.5 mg/dL (0.2-1.3); Blood Urea Nitrogen 16 mg/dL (7-17); Calcium 9.1 mg/dL (8.4-10.2); Carbon Dioxide 25 mmol/L (22-32); Chloride 104 mmol/L (98-107); Creatine Kinase 106 U/L (30-135); Estimated Glomerular Filt Rate > 60.0 mL/min (>60); Globulin 3.3 g/dL (1.7-4.1); Glucose 118 mg/dL (80-110); HEMOLYSIS < 15 (0-50); Lipase 106 U/L (23-300); Magnesium 2.1 mg/dL (1.6-2.3); Potassium 3.8 mmol/L (3.4-5.1); Sodium 136 mmol/L (137-145); Total Protein 7.9 g/dL (6.3-8.2)
[2021-08-31 10:01] LABS: Troponin I < 0.012 ng/mL (0.01-0.034)
[2021-08-31 10:04] LABS: CKMB % Relative Index 2.9 % (1.5-5.0); Creatine Kinase MB 3.11 ng/mL (<2.37)
[2021-08-31 10:49] LABS: Free T4, Direct Thyroxine 1.07 ng/dL (0.78-2.19)
[2021-08-31 11:03] LABS: Thyroid Stimulating Hormone 5.19 uIU/mL (0.47-4.68)
== END 2021-08-31 12:43 | disposition home or self-care (01) ==
PROVIDERS: Emergency Provider Emergency Medicine; Family Provider Family Medicine; PCP Family Medicine
DX: R00.2 Palpitations (principal)
CPT/HCPCS: 36415; 71045; 80053; 82550; 82553; 83690; 83735; 84439; 84443; 84484; 85025; 93005; 93010; 99284

== ENCOUNTER → 2022-01-09 09:15 | Outpatient (CLI) | payer MEDICARE, BC, SELFPAY ==
--- NOTE | 2022-01-09 | DI.MG.S_ITS ---
BILATERAL DIGITAL SCREENING MAMMOGRAM 3D/2D WITH CAD: 01/09/2022 CLINICAL: Routine screening. Comparison is made to exams dated: 01/03/2021 mammogram, 12/28/2019 mammogram, and 03/10/2019 mammogram - [facility]. The tissue of both breasts is heterogeneously dense. This may lower the sensitivity of mammography. Current study was also evaluated with a Computer Aided Detection (CAD) system. No significant masses, calcifications, or other findings are seen in either breast. There has been no significant interval change. IMPRESSION: NEGATIVE There is no mammographic evidence of malignancy. A 1 year screening mammogram is recommended. Based on the Tyrer Cuzick model (a risk assessment model) the patient's lifetime risk is 4.1% and her 10 year risk is 0.0%. According to the ACR, ACS, and NCCN guidelines, an annual breast MRI exam along with mammogram is recommended if the patient's lifetime risk is 20% or greater. This exam was interpreted at Station ID: [id number]. NOTE: For mammograms, a report in lay terms will be sent to the patient. Approximately 15% of breast malignancies will not be visualized mammographically. In the management of a palpable breast mass, a negative mammogram must not discourage biopsy of a clinically suspicious lesion. Electronically Signed By: Lenora clifford/cat:01/09/2022 16:52:51 letter sent: Normal Exam ACR BI-RADS Category 1: Negative 3341F
== END ==
PROVIDERS: Family Provider Family Medicine; PCP Family Medicine; Referring Provider Family Medicine; Visit Provider Family Medicine
DX: Z12.31 Encounter for screening mammogram for malignant neoplasm of breast (principal)
CPT/HCPCS: 77063; 77067

== ENCOUNTER → 2023-01-17 11:24 | Outpatient (CLI) | payer MEDICARE, BC, SELFPAY ==
--- NOTE | 2023-01-17 | DI.MG.S_ITS ---
BILATERAL DIGITAL SCREENING MAMMOGRAM 3D/2D WITH CAD: 01/17/2023 CLINICAL: Routine screening. Comparison is made to exams dated: 01/09/2022 mammogram, 01/03/2021 mammogram, and 12/28/2019 mammogram - [facility]. Both breasts are heterogeneously dense, which may obscure small masses (category c / 51-75% glandular tissue). Current study was also evaluated with a Computer Aided Detection (CAD) system. No significant masses, calcifications, or other findings are seen in either breast. There has been no significant interval change. IMPRESSION: NEGATIVE There is no mammographic evidence of malignancy. A 1 year screening mammogram is recommended. Based on the Tyrer Cuzick model (a risk assessment model) the patient's lifetime risk is 3.5% and her 10 year risk is 0.0%. According to the ACR, ACS, and NCCN guidelines, an annual breast MRI exam along with mammogram is recommended if the patient's lifetime risk is 20% or greater. This exam was interpreted at Station ID: [id number]. NOTE: For mammograms, a report in lay terms will be sent to the patient. Approximately 15% of breast malignancies will not be visualized mammographically. In the management of a palpable breast mass, a negative mammogram must not discourage biopsy of a clinically suspicious lesion. Electronically Signed By: Jamar reyes/cat:01/17/2023 13:14:47 letter sent: Normal Exam ACR BI-RADS Category 1: Negative 3341F
== END ==
PROVIDERS: Family Provider Family Medicine; Referring Provider Family Medicine; Visit Provider Family Medicine
DX: Z12.31 Encounter for screening mammogram for malignant neoplasm of breast (principal)
CPT/HCPCS: 77063; 77067

== ENCOUNTER → 2023-08-06 07:52 | Outpatient (CLI) | payer MEDICARE, BC, SELFPAY ==
[2023-08-06 09:37] LABS: Add Manual Diff / Slide Review NO; Basophils Absolute Auto 0 /uL (0-100); Basophils Percent Auto 1.2 % (0-2); Eosinophils Absolute Auto 100 /uL (0-450); Eosinophils Percent Auto 2.5 % (2-4); Hematocrit 39.8 % (36-46); Hemoglobin 13.5 g/dL (12.0-16.0); Lymphocytes Absolute Auto 1200 /uL (1100-4500); Lymphocytes Percent Auto 31.6 % (25-40); Mean Corpuscular HGB Conc 33.9 % (30-36); Mean Corpuscular Hemoglobin 30.7 PG (26-34); Mean Corpuscular Volume 90.8 fL (80-100); Monocytes Absolute Auto 400 /uL (0-900); Monocytes Percent Auto 10.7 % (3-14); Neutrophils Absolute Auto 2100 /uL (1500-7000); Platelet Count 203 X10^3/uL (150-400); Red Blood Cell Count 4.38 X10^6/uL (4.0-5.2); Red Cell Distribution Width 13.3 % (11.6-14.8)
[2023-08-06 10:07] LABS: Alanine Aminotransferase 39 IU/L (<35); Albumin 4.2 g/dL (3.5-5.0); Albumin Globulin Ratio 1.3 (1.0-2.8); Alkaline Phosphatase 77 U/L (38-126); Aspartate Aminotransferase 47 IU/L (14-36); BUN Creatinine Ratio 22.2 (6-22); Bilirubin Total 0.7 mg/dL (0.2-1.3); Blood Urea Nitrogen 16 mg/dL (7-17); Calcium 9.2 mg/dL (8.4-10.2); Carbon Dioxide 25 mmol/L (22-32); Chloride 104 mmol/L (98-107); Cholesterol 175 mg/dL (140-199); Estimated Glomerular Filt Rate > 60 mL/min (>60); Globulin 3.2 g/dL (1.7-4.1); Glucose 85 mg/dL (80-110); HDL Cholesterol 77 mg/dL (40-60); HEMOLYSIS < 15 (0-50); LDL Cholesterol Calculated 69 mg/dL (<100); Potassium 4.6 mmol/L (3.4-5.1); Sodium 137 mmol/L (137-145); Total Protein 7.4 g/dL (6.3-8.2); Triglycerides 145 mg/dL (35-150)
[2023-08-06 10:28] LABS: Thyroid Stimulating Hormone 3.19 uIU/mL (0.47-4.68)
== END ==
PROVIDERS: Family Provider Family Medicine; Referring Provider Internal Medicine Advanced Heart Failure and Transplant Cardiology; Visit Provider Internal Medicine Advanced Heart Failure and Transplant Cardiology
DX: Z00.00 Encounter for general adult medical examination without abnormal findings (principal); E03.9 Hypothyroidism, unspecified; I48.0 Paroxysmal atrial fibrillation
CPT/HCPCS: 36415; 80053; 80061; 84443; 85025

== ENCOUNTER → 2023-10-07 11:15 | Outpatient (CLI) | payer MEDICARE, BC, SELFPAY ==
[2023-10-07 13:00] LABS: Alanine Aminotransferase 31 IU/L (<35); Albumin 4.3 g/dL (3.5-5.0); Albumin Globulin Ratio 1.2 (1.0-2.8); Alkaline Phosphatase 91 U/L (38-126); Aspartate Aminotransferase 40 IU/L (14-36); BUN Creatinine Ratio 21.3 (6-22); Bilirubin Total 0.5 mg/dL (0.2-1.3); Blood Urea Nitrogen 16 mg/dL (7-17); Calcium 9.6 mg/dL (8.4-10.2); Carbon Dioxide 27 mmol/L (22-32); Chloride 108 mmol/L (98-107); Estimated Glomerular Filt Rate > 60 mL/min (>60); Globulin 3.6 g/dL (1.7-4.1); Glucose 86 mg/dL (80-110); HEMOLYSIS < 15 (0-50); Potassium 4.7 mmol/L (3.4-5.1); Sodium 139 mmol/L (137-145); Total Protein 7.9 g/dL (6.3-8.2)
== END ==
PROVIDERS: Family Provider Family Medicine; Referring Provider Internal Medicine Advanced Heart Failure and Transplant Cardiology; Visit Provider Internal Medicine Advanced Heart Failure and Transplant Cardiology
DX: I48.0 Paroxysmal atrial fibrillation (principal); I25.10 Atherosclerotic heart disease of native coronary artery without angina pectoris
CPT/HCPCS: 36415; 80053; 93005

== ENCOUNTER → 2024-01-23 14:09 | Outpatient (CLI) | payer MEDICARE, BC, SELFPAY ==
--- NOTE | 2024-01-23 | DI.MG.S_ITS ---
BILATERAL DIGITAL SCREENING MAMMOGRAM 3D/2D WITH CAD: 01/23/2024 CLINICAL: Routine screening. Comparison is made to exams dated: 01/17/2023 mammogram, 01/09/2022 mammogram, and 01/03/2021 mammogram - [facility]. Both breasts are heterogeneously dense, which may obscure small masses (category c / 51-75% glandular tissue). Current study was also evaluated with a Computer Aided Detection (CAD) system. No significant masses, calcifications, or other findings are seen in either breast. There has been no significant interval change. IMPRESSION: NEGATIVE There is no mammographic evidence of malignancy. A 1 year screening mammogram is recommended. Based on the Tyrer Cuzick model (a risk assessment model) the patient's lifetime risk is 1.6% and her 10 year risk is 0.0%. According to the ACR, ACS, and NCCN guidelines, an annual breast MRI exam along with mammogram is recommended if the patient's lifetime risk is 20% or greater. This exam was interpreted at Station ID: [id number]. NOTE: For mammograms, a report in lay terms will be sent to the patient. Approximately 15% of breast malignancies will not be visualized mammographically. In the management of a palpable breast mass, a negative mammogram must not discourage biopsy of a clinically suspicious lesion. Electronically Signed By: Dhruv braswell/cat:01/23/2024 22:17:43 letter sent: Normal Exam ACR BI-RADS Category 1: Negative 3341F
== END ==
LOC: MAMMO 14:11
PROVIDERS: Family Provider Family Medicine; PCP Family Medicine; Referring Provider Family Medicine; Visit Provider Family Medicine
DX: Z12.31 Encounter for screening mammogram for malignant neoplasm of breast (principal); R92.333 Mammographic heterogeneous density, bilateral breasts
CPT/HCPCS: 77063; 77067

== ENCOUNTER 2024-10-24 14:26 | Emergency (ER) | payer MEDICARE, BC, SELFPAY ==
[2024-10-24] VITALS (15 sets, daily range): BP systolic 126–168; BP diastolic 60–83; PULSE 61–87; RESP 12–31; TEMP 36.6; O2SAT 96–100; BMI 20.6
--- NOTE | 2024-10-24 14:32 | DI.RAD.S_ITS ---
PROCEDURE: XR CHEST 1V INDICATIONS: chest pain TECHNIQUE: One view of the chest was acquired. COMPARISON: [facility], CR, XR CHEST 1V, 08/31/2021, 9:48. FINDINGS: Surgical changes and devices: None. Lungs and pleura: Lungs are clear. No pleural effusions or pneumothorax. Mediastinum: Mediastinal contours appear normal. Heart size is normal. Bones and chest wall: No suspicious bony lesions. Overlying soft tissues appear unremarkable. IMPRESSION: No acute cardiopulmonary pathology. Dictated by: Everton Morris M.D. on 10/24/2024 at 15:12 Approved by: Everton Morris M.D. on 10/24/2024 at 15:12
--- NOTE | 2024-10-24 14:32 | EKG_ITS ---
[address] [address] Test Date: 2024-10-24 Pat Name: Mignon Webster Department: 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
[2024-10-24 14:59] LABS: Add Manual Diff / Slide Review NO; Basophils Absolute Auto 100 /uL (0-100); Eosinophils Absolute Auto 100 /uL (0-450); Eosinophils Percent Auto 1.5 % (2-4); Hematocrit 41.7 % (36-46); Lymphocytes Absolute Auto 1300 /uL (1100-4500); Lymphocytes Percent Auto 24.9 % (25-40); Mean Corpuscular HGB Conc 33.6 % (30-36); Mean Corpuscular Hemoglobin 30.8 PG (26-34); Mean Corpuscular Volume 91.6 fL (80-100); Monocytes Absolute Auto 500 /uL (0-900); Neutrophils Absolute Auto 3400 /uL (1500-7000); Neutrophils Percent Auto 63.6 % (50-75); Platelet Count 230 X10^3/uL (150-400); Red Blood Cell Count 4.55 X10^6/uL (4.0-5.2); White Blood Cell Count 5.4 X10^3/uL (4.5-11.0)
[2024-10-24 15:05] LABS: PTT Partial Thromboplastin Tim 35 SECONDS (25.1-36.5)
[2024-10-24 15:06] LABS: Alanine Aminotransferase 28 IU/L (<35); Albumin 4.6 g/dL (3.5-5.0); Albumin Globulin Ratio 1.5 (1.0-2.8); Alkaline Phosphatase 99 U/L (38-126); Aspartate Aminotransferase 39 IU/L (14-36); BUN Creatinine Ratio 25.3 (6-22); Bilirubin Total 0.4 mg/dL (0.2-1.3); Blood Urea Nitrogen 21 mg/dL (7-17); Calcium 9.4 mg/dL (8.4-10.2); Carbon Dioxide 24 mmol/L (22-32); Chloride 103 mmol/L (98-107); Creatine Kinase 65 U/L (30-135); Estimated Glomerular Filt Rate > 60 mL/min (>60); Glucose 126 mg/dL (80-110); HEMOLYSIS < 15 (0-50); Lipase 107 U/L (23-300); Magnesium 2.2 mg/dL (1.6-2.3); Potassium 4.3 mmol/L (3.4-5.1); Sodium 136 mmol/L (137-145); Total Protein 7.6 g/dL (6.3-8.2)
[2024-10-24 15:17] LABS: NT-proBNP (BNP-Adult 18+) 243 pg/mL (<450); Troponin I < 0.012 ng/mL (0.01-0.034)
--- NOTE | 2024-10-24 17:03 | ED_ITS ---
HPI - Chest Pain General Chief Complaint: Chest Pain Stated Complaint: chest pain Time Seen by Provider: 10/24/24 14:43 Source: patient Mode of arrival: Ambulatory Limitations: no limitations History of Present Illness HPI narrative: Patient is an 84-year-old female with known coronary artery disease presenting to day with chest discomfort. She was followed closely by [facility]. She has had increase in her angina symptoms today. She started having some pain at rest. It was mostly with exertion and she was scheduled to have an angiogram in 1 week. However today he is having pain at rest intermittently sweaty with hot flashes and definitely worse with activity. She called her welding estimator who recommended she come to the nearest hospital so ambulance transport can be made arranged for her to go down to the [place]. Currently at rest she is chest pain free and has no shortness of breath Related Data Home Medications Medication Instructions Recorded Confirmed aspirin 81 mg tablet,delayed 81 mg PO QPM 03/07/18 06/29/21 release (Aspir-) atorvastatin 20 mg tablet 20 mg PO QPM 03/07/18 06/29/21 cholecalciferol (vitamin D3) 50 1 tab PO DAILY 03/07/18 06/29/21 mcg (2,000 unit) capsule (Vitamin D3) coenzyme Q10 100 mg capsule 100 mg PO DAILY 03/07/18 06/29/21 (CoQ-10) docusate sodium 100 mg capsule 100 mg PO BID 03/07/18 06/29/21 estradiol 0.01% (0.1 mg/gram) 1 g vaginal 3XW 03/07/18 06/29/21 vaginal cream (Estrace) omega 5-mjx-dxp-fish oil 1,000 mg 2 - 3 cap PO DAILY 03/07/18 06/29/21 (120 mg-180 mg) capsule (Fish Oil) levothyroxine 50 mcg tablet 50 mcg PO DAILY 10/21/18 06/29/21 Allergies Allergy/AdvReac Type Severity Reaction Status Date / Time bacitracin Allergy Intermediate RASH Verified 08/31/21 09:31 [From NEOSPORIN ([id number])] neomycin Allergy Intermediate RASH Verified 08/31/21 09:31 [From NEOSPORIN ([id number])] polymyxin B Allergy Intermediate RASH Verified 08/31/21 09:31 [From NEOSPORIN ([id number])] rosuvastatin [From Crestor] AdvReac Intermediate Headache Verified 08/31/21 09:31 Patient History Medical History Atrial fibrillation High cholesterol Hypothyroidism Mass of toe (06/2021) Skin cancer Social History household members: spouse Smoking Status: Never smoker alcohol intake: current Smoking Status: Never smoker alcohol intake frequency: holidays/special occasions only Exam Initial Vital Signs Initial Vital Signs: Vital Signs Temperature 98 F 10/24/24 14:28 Pulse Rate 87 10/24/24 14:28 Respiratory Rate 18 10/24/24 14:28 Blood Pressure 152/80 H 10/24/24 14:28 Pulse Oximetry 100 10/24/24 14:28 Oxygen Delivery Method Room Air 10/24/24 14:28 GENERAL: Alert pleasant well-appearing 84-year-old female and in no acute distress. HEENT: Head atraumatic,EOMI, pupils reactive, face symmetric, moist mucous membranes CARDIOVASCULAR: Regular rate and rhythm without murmurs, rubs or gallops. RESPIRATORY: Breath sounds equal bilaterally, no wheezes rales or rhonchi. ABDOMEN: Soft, nontender. Normoactive bowel sounds all 4 quadrants. No guarding or rebound. EXTREMITIES: Normal range of motion, no clubbing or edema. Neurovascularly intact NEUROLOGICAL: Alert and oriented x4.Normal gait and speech. Cranial nerves II through XII grossly intact. SKIN: Warm, dry, no laceration, no petechiae, no rashes or lesions. Course Orders Ordered: ED Orders 10/24/24 14:32 XR chest 1V Stat EKG-12 Lead Stat 10/24/24 14:42 Complete Blood Count AUTO DIFF Stat Comprehensive Metabolic Panel Stat Lipase Stat Magnesium Stat NT-proBNP (BNP-Adult 18+) Stat PTT Partial Thromboplastin [place] Stat Prothrombin Time INR Stat Troponin & CK Cardiac Panel Stat 10/24/24 17:33 Trop I [Troponin I] Stat 10/24/24 18:45 PTT Partial Thromboplastin [place] Q6H 10/25/24 00:45 PTT Partial Thromboplastin [place] Q6H 10/25/24 05:00 Hemoglobin and Hematocrit DAILY Platelet Count DAILY 10/25/24 06:45 PTT Partial Thromboplastin [place] Q6H 10/25/24 12:45 PTT Partial Thromboplastin [place] Q6H 10/26/24 05:00 Hemoglobin and Hematocrit DAILY Platelet Count DAILY Heparin Sodium/Dextrose (Heparin Drip) 25,000 unit in 500 mls @ 13.499 mls/hr IV CONT ANGIE; Protocol Last Admin: 10/24/24 19:04 Dose: 12 units/kg/hr, 13.499 mls/hr Documented By: HUBER Co-signed By: AB Discontinued Medications Atorvastatin Calcium (Atorvastatin 20 Mg Tablet) 80 mg PO NOW ONE Stop: 10/24/24 18:39 Last Admin: 10/24/24 19:03 Dose: Not Given Documented By: HUBER Heparin Sodium (Porcine) (Heparin 5,000 Unit/Ml Vial) 3,500 unit 60 unit/kg (3500 unit) IV NOW ONE Stop: 10/24/24 18:39 Last Admin: 10/24/24 19:02 Dose: 3,500 unit Documented By: HUBER Vital Signs Vital signs: Vital Signs - 8 hr 10/24/24 14:28 10/24/24 14:59 10/24/24 15:00 Temperature 98 F Pulse Rate 87 69 70 Respiratory Rate 18 21 17 Blood Pressure 152/80 H Pulse Oximetry 100 99 99 Oxygen Delivery Method Room Air 10/24/24 15:00 10/24/24 15:26 10/24/24 15:26 Temperature Pulse Rate 65 Respiratory Rate 20 Blood Pressure 139/67 139/65 Pulse Oximetry 98 Oxygen Delivery Method 10/24/24 15:30 10/24/24 15:30 10/24/24 16:00 Temperature Pulse Rate 65 62 Respiratory Rate 15 12 Blood Pressure 135/63 Pulse Oximetry 98 98 Oxygen Delivery Method 10/24/24 16:00 10/24/24 16:30 10/24/24 16:30 Temperature Pulse Rate 66 Respiratory Rate 13 Blood Pressure 142/66 H 132/69 Pulse Oximetry 97 Oxygen Delivery Method 10/24/24 17:00 10/24/24 17:00 10/24/24 17:30 Temperature Pulse Rate 65 67 Respiratory Rate 12 20 Blood Pressure 138/68 Pulse Oximetry 96 96 Oxygen Delivery Method 10/24/24 17:30 10/24/24 18:00 10/24/24 18:02 Temperature Pulse Rate 65 61 Respiratory Rate 31 H 20 Blood Pressure 126/60 Pulse Oximetry 99 99 Oxygen Delivery Method 10/24/24 18:02 10/24/24 18:11 10/24/24 18:11 Temperature Pulse Rate 62 Respiratory Rate 20 Blood Pressure 152/69 H 165/70 H Pulse Oximetry 99 Oxygen Delivery Method 10/24/24 18:30 10/24/24 18:30 Temperature Pulse Rate 63 Respiratory Rate 16 Blood Pressure 140/71 Pulse Oximetry 99 Oxygen Delivery Method MDM - Chest Pain Lab Data 10/24/24 14:42 10/24/24 14:42 Labs: Lab Results 10/24/24 10/24/24 Range/Units 14:42 17:33 WBC 5.4 (4.5-11.0) X10^3/uL RBC 4.55 (4.0-5.2) X10^6/uL Hgb 14.0 (12.0-16.0) g/dL Hct 41.7 (36-46) % MCV 91.6 (80-100) fL MCH 30.8 (26-34) PG MCHC 33.6 (30-36) % RDW 13.0 (11.6-14.8) % Plt Count 230 (150-400) X10^3/uL Neut % (Auto) 63.6 (50-75) % Lymph % (Auto) 24.9 L (25-40) % [place] % (Auto) 9.0 (3-14) % Eos % (Auto) 1.5 L (2-4) % Baso % (Auto) 1.0 (0-2) % Neut # (Auto) 3400 (4728-2305) /uL Lymph # (Auto) 1300 (6770-8004) /uL [place] # (Auto) 500 (0-900) /uL Eos # (Auto) 100 (0-450) /uL Baso # (Auto) 100 (0-100) /uL PT 11.0 (9.4-12.5) SECONDS INR 1.0 (0.9-1.3) APTT 35 (25.1-36.5) SECONDS Sodium 136 L (137-145) mmol/L Potassium 4.3 (3.4-5.1) mmol/L Chloride 103 (98-107) mmol/L Carbon Dioxide 24 (22-32) mmol/L BUN 21 H (7-17) mg/dL Creatinine 0.83 (0.52-1.04) mg/dL Estimated GFR > 60 (>60) mL/min BUN/Creatinine Ratio 25.3 H (6-22) Glucose 126 H (80-110) mg/dL Calcium 9.4 (8.4-10.2) mg/dL Magnesium 2.2 (1.6-2.3) mg/dL Total Bilirubin 0.4 (0.2-1.3) mg/dL AST 39 H (14-36) IU/L ALT 28 (<35) IU/L Alkaline Phosphatase 99 (38-126) U/L Total Creatine Kinase 65 (30-135) U/L Troponin I < 0.012 < 0.012 (0.01-0.034) ng/mL NT-Pro-B Natriuret Pep 243 (<450) pg/mL Total Protein 7.6 (6.3-8.2) g/dL Albumin 4.6 (3.5-5.0) g/dL Globulin 3.0 (1.7-4.1) g/dL Albumin/Globulin Ratio 1.5 (1.0-2.8) Lipase 107 (23-300) U/L Imaging Data Chest x-ray: Radiologist's Impression: PROCEDURE: XR CHEST 1V INDICATIONS: chest pain TECHNIQUE: One view of the chest was acquired. COMPARISON: [facility], , XR CHEST 1V, 08/31/2021, 9:48. FINDINGS: Surgical changes and devices: None. Lungs and pleura: Lungs are clear. No pleural effusions or pneumothorax. Mediastinum: Mediastinal contours appear normal. Heart size is normal. Bones and chest wall: No suspicious bony lesions. Overlying soft tissues appear unremarkable. IMPRESSION: No acute cardiopulmonary pathology. Dictated by: Everton Morris M.D. on 10/24/2024 at 15:12 ECG Data Attestation: I personally reviewed and interpreted this ECG as follows: Prior ECG tracings: available for review Interpretation: Normal sinus rhythm rate 74 KS interval 170 QRS [address] changes no T- wave inversions similar to previous EKGs MDM Narrative Medical decision making narrative: Patient 84-year-old female with known coronary artery disease presenting today with unstable angina. She was currently chest pain-free here. EKGs does not show any evidence of ischemia Blood work is overall reassuring. She has a negative troponin. No leukocytosis no anemia electrolytes stable, creatinine 0.[address] Jose Ruiz patient's cardiology at the [facility]. Confirms that he would like patient transferred to the [facility]. He was already called and spoken with Cardiology A and Dr. Manning is on. Dr. Manning, cardiology updated patient's symptoms test results request heparin. Patient will be transferred to [facility]. Discharge Plan Departure Patient Disposition: [facility] Clinical Impression: Unstable angina Prescriptions: No Action levothyroxine 50 mcg tablet 50 mcg PO DAILY atorvastatin 20 mg Tablet 20 mg PO QPM aspirin [Aspir-81] 81 mg Tablet,Delayed Release (Dr/Ec) 81 mg PO QPM cholecalciferol (vitamin D3) [Vitamin D3] 2,000 unit Capsule 1 tab PO DAILY omega 2-zmv-qpq-fish oil [Fish Oil] 1,000 mg (120 mg-180 mg) Capsule 2 - 3 cap PO DAILY coenzyme Q10 [CoQ-10] 100 mg Capsule 100 mg PO DAILY docusate sodium 100 mg Capsule 100 mg PO BID estradiol [Estrace] 0.01 % (0.1 mg/gram) Cream 1 g VAGINAL 3XW Referrals: Mouna Reyes MD [Primary Care Provider] - Stand Alone Forms: Patient Portal/API/Survey
[2024-10-24 18:05] LABS: Troponin I < 0.012 ng/mL (0.01-0.034)
[2024-10-24] MEDS: HEPARIN 5,000 UNIT/ML VIAL 3500 UNIT IV (19:02)
[2024-10-24] MEDS: HEPARIN DRIP 25,000 UNIT/500 ML IV.SOLN 13.499 UNIT IV (19:04)
== END 2024-10-24 20:05 | disposition short-term general hospital (02) ==
PROVIDERS: Emergency Provider Emergency Medicine; Family Provider Family Medicine; PCP Family Medicine
DX: I25.110 Atherosclerotic heart disease of native coronary artery with unstable angina pectoris (principal)
CPT/HCPCS: 36415; 71045; 80053; 82550; 83690; 83735; 83880; 84484; 85025; 85610; 85730; 93005; 96365; 99284; J1644

== ENCOUNTER → 2025-02-03 12:38 | Outpatient (CLI) | payer MEDICARE, BC, SELFPAY ==
--- NOTE | 2025-02-03 12:39 | DI.MG.S_ITS ---
MM screening mammo BI: 02/03/2025. BI-RADS: 1 CLINICAL: 84-year old female for bilateral screening mammogram. Tyrer-Cuzick lifetime risk of 0.7%. No personal or first-degree family history of breast cancer. PRIOR EXAMS 01/23/2024, 01/17/2023, 01/09/2022, 01/03/2021, MAMMOGRAPHY TECHNIQUE: 2D and 3D (tomosynthesis) digital mammographic views obtained, with additional images as needed for full coverage. Current study was also evaluated with a Computer Aided Detection (CAD) system. DENSITY C. The breasts are heterogeneously dense, which may obscure small masses. MAMMOGRAPHY FINDINGS Bilateral: No suspicious mass, asymmetry, microcalcification, or other abnormality seen. IMPRESSION: * No evidence of malignancy. RECOMMENDATIONS Bilateral * Annual screening mammography. OVERALL ASSESSMENT CATEGORY BI-RADS-1: Negative. The [employer] recommends annual screening mammography beginning at age 40 for women with average risk of breast cancer. ELECTRONICALLY SIGNED: Dhruv Singh M.D. on 02/03/2025 at 07:44:48 PM PT Interpreting Station ID: [id number]
== END ==
LOC: MAMMO 12:38
PROVIDERS: Family Provider Family Medicine; PCP Family Medicine; Referring Provider Family Medicine; Visit Provider Family Medicine
DX: Z12.31 Encounter for screening mammogram for malignant neoplasm of breast (principal); R92.333 Mammographic heterogeneous density, bilateral breasts
CPT/HCPCS: 77063; 77067